=== PATIENT | male | born 1950 | race Caucasian/White ===

== ENCOUNTER → 2023-02-12 13:48 | Outpatient (CLI) | payer OTHER, SELFPAY | PROVIDERS: PCP Registered Nurse; Visit Provider Urology | DX: N40.1 Benign prostatic hyperplasia with lower urinary tract symptoms (principal); R33.8 Other retention of urine; N32.0 Bladder-neck obstruction; R39.9 Unspecified symptoms and signs involving the genitourinary system; R97.20 Elevated prostate specific antigen [PSA] | CPT/HCPCS: 51702; 87086; 99214 ==

== ENCOUNTER → 2023-03-26 10:28 | Outpatient (CLI) | payer OTHER, SELFPAY ==
--- NOTE | 2023-03-26 | DI.MRI.S_ITS ---
PROCEDURE: MR LUMBAR SPINE WO/W CON INDICATIONS: URUINARY RETENTION, HX SPINE INJ TECHNIQUE: Noncontrast sagittal T1 spin echo and T2 fast spin echo, sagittal STIR, axial T1 and T2 fast spin echo through the lumbar spine. In cases with scoliosis, additional coronal T2 fast spin echo may be performed. After the administration of contrast, sagittal and axial T1 spin echo with fat saturation through the lumbar spine. COMPARISON: None. FINDINGS: Image quality: Excellent. Alignment and curvature: There is normal bony alignment. Marrow: Modic type 1 degenerative endplate changes at L2-3 Spinal cord: Conus medullaris terminates at the L1 level. Visualized spinal cord demonstrates normal signal, without suspicious enhancement. Paraspinous soft tissues: No paravertebral masses or abnormal enhancement. T12-L1: Normal appearance. L1-L2: Disc space narrowing and circumferential disc bulge. No central or foraminal stenosis. L2-L3: Space narrowing with circumferential bulge results in [id number] central stenosis. Moderate left and mild right foraminal stenosis L3-L4: Disc space narrowing. No central or foraminal stenosis L4-L5: Disc space narrowing with hypertrophic facet joints. No central stenosis. Mild bilateral foraminal stenosis L5-S1: Disc space narrowing with hypertrophic facet joints. No central stenosis. Moderate bilateral foraminal stenosis IMPRESSION: Multilevel degenerative disc disease and arthropathy results in varying degrees of central and foraminal stenosis including moderate bilateral foraminal stenosis L5-S1 Approved by: David Jacobs M.D. on 03/26/2023 at 18:57
--- NOTE | 2023-03-26 | DI.MRI.S_ITS ---
PROCEDURE: MR THORACIC SPINE WO/W CON INDICATIONS: URINARY RETENTION, HX SPINE INJURY. TECHNIQUE: Noncontrast sagittal T1 spin echo and T2 fast spin echo, sagittal STIR, axial T1 and T2 fast spin echo through the thoracic spine. After the administration of contrast, axial and sagittal T1 spin echo with fat saturation through the thoracic spine. COMPARISON: None. FINDINGS: Image quality: Excellent. Alignment and curvature: There is normal bony alignment. Marrow: Marrow is of normal overall signal. No acute vertebral body compression fractures. Spinal cord: Visualized spinal cord is of normal signal and size, without abnormal enhancement. Paraspinous soft tissues: No paravertebral masses or abnormal enhancement. Miscellaneous: Central canal and foramina appear widely patent at all scanned levels. IMPRESSION: Normal MRI thoracic spine with and without contrast Approved by: David Jacobs M.D. on 03/26/2023 at 18:59
== END ==
PROVIDERS: PCP Registered Nurse; Referring Provider Urology; Visit Provider Urology
DX: M48.061 Spinal stenosis, lumbar region without neurogenic claudication; M48.07 Spinal stenosis, lumbosacral region; M47.816 Spondylosis without myelopathy or radiculopathy, lumbar region; M47.817 Spondylosis without myelopathy or radiculopathy, lumbosacral region; M51.36 Other intervertebral disc degeneration, lumbar region; R33.8 Other retention of urine; Z87.828 Personal history of other (healed) physical injury and trauma
CPT/HCPCS: 72157; 72158; A9579

== ENCOUNTER → 2023-03-31 10:52 | Outpatient (CLI) | payer OTHER, SELFPAY | PROVIDERS: PCP Registered Nurse; Visit Provider Urology | DX: N40.1 Benign prostatic hyperplasia with lower urinary tract symptoms (principal); N32.0 Bladder-neck obstruction; R33.8 Other retention of urine; R39.9 Unspecified symptoms and signs involving the genitourinary system; R97.20 Elevated prostate specific antigen [PSA]; Z87.828 Personal history of other (healed) physical injury and trauma | CPT/HCPCS: 51702; 87077; 87086; 87186; 99214 ==

== ENCOUNTER → 2023-04-22 12:19 | Outpatient (CLI) | payer OTHER, SELFPAY | PROVIDERS: PCP Registered Nurse; Visit Provider Specialist | DX: N32.0 Bladder-neck obstruction (principal); R39.9 Unspecified symptoms and signs involving the genitourinary system; R33.8 Other retention of urine | CPT/HCPCS: 51702; 87086 ==

== ENCOUNTER → 2023-05-19 11:46 | Outpatient (CLI) | payer OTHER, SELFPAY | PROVIDERS: PCP Registered Nurse; Visit Provider Urology | DX: N40.1 Benign prostatic hyperplasia with lower urinary tract symptoms (principal); R33.8 Other retention of urine; R39.9 Unspecified symptoms and signs involving the genitourinary system; N32.0 Bladder-neck obstruction; R97.20 Elevated prostate specific antigen [PSA]; Z87.828 Personal history of other (healed) physical injury and trauma | CPT/HCPCS: 51702; 87077; 87086; 87147; 87186; 99214 ==

== ENCOUNTER → 2023-06-25 11:28 | Outpatient (CLI) | payer OTHER, SELFPAY | PROVIDERS: PCP Registered Nurse; Visit Provider Urology | DX: R39.9 Unspecified symptoms and signs involving the genitourinary system (principal) | CPT/HCPCS: 51798; 81002; 87086 ==

== ENCOUNTER → 2023-07-29 10:56 | Outpatient (CLI) | payer OTHER, SELFPAY | PROVIDERS: PCP Registered Nurse; Visit Provider Urology | DX: N40.1 Benign prostatic hyperplasia with lower urinary tract symptoms (principal); N32.0 Bladder-neck obstruction; R33.8 Other retention of urine; R97.20 Elevated prostate specific antigen [PSA]; R39.9 Unspecified symptoms and signs involving the genitourinary system; Z87.828 Personal history of other (healed) physical injury and trauma | CPT/HCPCS: 51798; 81002; 87077; 87086; 87186; 99213 ==

== ENCOUNTER → 2023-09-22 10:31 | Outpatient (CLI) | payer OTHER, SELFPAY | PROVIDERS: PCP Registered Nurse; Visit Provider Urology | DX: N39.0 Urinary tract infection, site not specified (principal); N32.0 Bladder-neck obstruction; N40.1 Benign prostatic hyperplasia with lower urinary tract symptoms; R33.8 Other retention of urine; R97.20 Elevated prostate specific antigen [PSA]; R39.9 Unspecified symptoms and signs involving the genitourinary system; Z87.828 Personal history of other (healed) physical injury and trauma | CPT/HCPCS: 51798; 81002; 87077; 87086; 87147; 87186; 99213 ==

== ENCOUNTER → 2024-07-21 10:09 | Outpatient (CLI) | payer OTHER, SELFPAY | PROVIDERS: PCP Registered Nurse; Visit Provider Urology | DX: N39.0 Urinary tract infection, site not specified (principal) | CPT/HCPCS: 87077; 87086; 87147; 87186 ==

== ENCOUNTER → 2024-08-10 13:47 | Outpatient (CLI) | payer OTHER, SELFPAY | PROVIDERS: PCP Registered Nurse; Visit Provider Urology | DX: R31.0 Gross hematuria (principal); R33.9 Retention of urine, unspecified; Z78.9 Other specified health status; Z87.828 Personal history of other (healed) physical injury and trauma | CPT/HCPCS: 81002; 87086; 99213 ==

== ENCOUNTER → 2024-10-10 10:23 | Outpatient (CLI) | payer OTHER, SELFPAY | PROVIDERS: PCP Registered Nurse; Visit Provider Urology | DX: N39.0 Urinary tract infection, site not specified (principal) | CPT/HCPCS: 87077; 87086; 87186 ==

== ENCOUNTER → 2024-11-30 10:33 | Outpatient (CLI) | payer OTHER, SELFPAY | PROVIDERS: PCP Registered Nurse; Visit Provider Urology | DX: R97.20 Elevated prostate specific antigen [PSA] (principal) | CPT/HCPCS: 81002; 87077; 87086; 87186; 99214 ==

== ENCOUNTER → 2025-06-07 09:32 | Outpatient (CLI) | payer OTHER, SELFPAY ==
--- NOTE | 2025-06-07 09:35 | DI.NM.S_ITS ---
P in ROCEDURE: NM BONE SCAN WHOLE BODY RADIOPHARMACEUTICAL: 21.6 mCi Tc-99m MDP IV. 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 Anterior and posterior views were acquired from vertex to feet. Additional left and right oblique views of the pelvis were obtained. COMPARISON: None. FINDINGS: Soft tissue, renal and bladder activity noted as expected. Extensive radiotracer uptake is noted throughout the ribs, thoracic, lumbar, sacral spine, bony pelvis. Single focus of mild to moderately intense activity is noted in the calvarium at the vertex. Extensive radiotracer uptake is noted in the bilateral mid and proximal humeri. Guerin catheter is noted the median evaluation. IMPRESSION: Scintigraphic findings consistent with extensive bony metastases. Dictated by: Ria Banerjee M.D. on 06/08/2025 at 20:27 Approved by: Ria Banerjee M.D. on 06/08/2025 at 20:30
== END ==
LOC: NUCM 09:34
PROVIDERS: PCP Registered Nurse; Referring Provider Internal Medicine Medical Oncology; Visit Provider Internal Medicine Medical Oncology
DX: C61 Malignant neoplasm of prostate (principal); C77.2 Secondary and unspecified malignant neoplasm of intra-abdominal lymph nodes; Z96.0 Presence of urogenital implants
CPT/HCPCS: 78306; A9503